=== PATIENT | male | born 1990 | race Caucasian/White ===

== ENCOUNTER 2018-07-18 16:41 | Emergency (ER) | payer SELFPAY ==
[~2018-07-18] VITALS: Ht 180.3 cm; Wt 72.6 kg
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
--- NOTE | 2018-07-18 17:20 | NUR ---
Becca AVILA, TANGELA AND DR WILSON ARE AT THE BEDSIDE EVALUATING THE PT'S LAC.
--- NOTE | 2018-07-18 17:25 | NUR ---
CIRILO GAONA LAPGiovani ARRIVED AND IS SPEAKING TO THE PT AND HIS GIRLFRIEND.
[2018-07-18] MEDS ORDERED: HYDROMORPHONE 1 MG/1 ML DISP.SYRIN ONE ×2 (17:28→18:07)
[2018-07-18] MEDS ORDERED: HYDROMORPHONE INJ 2 MG/ML DISP.SYRIN IV ONE ×2 (17:30→18:30)
[2018-07-18] MEDS ORDERED: ONDANSETRON HCL/PF 4 MG/2 ML VIAL IVP ONE (17:30)
[2018-07-18] MEDS ORDERED: TDAP [DIPH/PERTUSSIS/TET] 0.5 ML VIAL IM ONE ×2 (17:30→17:31)
[2018-07-18] MEDS ORDERED: IV NS 0.9% 1,000 ML BAG IV ONE (17:30)
[2018-07-18] MEDS ORDERED: ONDANSETRON HCL/PF 4 MG/2 ML VIAL ONE (17:31)
--- NOTE | 2018-07-18 17:40 | NUR ---
XRAY IN PROGRESS AT THE BEDSIDE.
[2018-07-18 17:52] LABS: BASOPHILS % (AUTO) 0.5 % (0.0-2.0); EOSINOPHILS % (AUTO) 0.7 % (0.0-6.0); HEMATOCRIT 44 % (39-51); LYMPHOCYTES # (AUTO) 0.9 /CMM (0.8-4.8); LYMPHOCYTES % (AUTO) 10.6 % (20.0-44.0); MEAN CORPUSCULAR HGB CONC 34 g/dl (31.0-36.0); MEAN CORPUSCULAR VOLUME 91 fL (80-96); MONOCYTES # (AUTO) 0.7 /CMM (0.1-1.30); MONOCYTES % (AUTO) 8.3 % (2.0-12.0); NEUTROPHILS # (AUTO) 6.9 /CMM (1.8-8.9); NEUTROPHILS % (AUTO) 79.9 % (43.0-81.0); PLATELET COUNT (AUTO) 240 /CMM (150-450); RED BLOOD CELL COUNT(AUTO) 4.83 MIL/uL (4.5-6.0); WHITE BLOOD COUNT (AUTO) 8.6 K/uL (4.3-11.0)
[2018-07-18 18:03] LABS: CALCIUM, SERUM 8.5 mg/dL (8.5-10.1); CREATININE 1.2 mg/dL (0.6-1.3); POTASSIUM 3.9 mmol/L (3.5-5.1)
[2018-07-18] MEDS ORDERED: LIDOCAINE 2%-EPI 1:100,000 30 ML VIAL ONE (18:59)
[2018-07-18] MEDS ORDERED: LIDOCAINE HCL/PF 1% 30 ML VIAL TP ONE (19:00)
--- NOTE | 2018-07-18 19:03 | NUR ---
B TANGELA AVILA VERBAL ORDER LIDOCAINE 2% W/EPI. IT IS AT THE BEDSIDE FOR SUTURING.
--- NOTE | 2018-07-18 19:10 | NUR ---
B MARGARITA, PAC IS AT THE BEDSIDE SUTURING THE PT.
--- NOTE | 2018-07-18 19:53 | NUR ---
PT REC'D A 4" ORTHOGLASS SPLINT AND CRUTCHES. Crutches dispensed. Pt instructed on proper use of crutches. Patient able to demonstrate correct use of crutches. Patient discharged to home in stable condition. Written and verbal after care instructions given. Patient verbalizes understanding of instruction AND RX. PT WAS INSTRUCTED NOT TO DRIVE. PT REC'D AN EXCUSE FROM WORK.
[2018-07-18 19:55] VITALS: BP 127/85
--- NOTE | 2018-07-18 19:57 | NUR ---
IV removed. Catheter intact and site benign. Pressure and 4x4 applied to site. No bleeding noted.
== END 2018-07-18 19:56 | disposition home or self-care (01) ==
LOC: ER 16:54
DX: S91.312A Laceration without foreign body, left foot, initial encounter (principal); S90.512A Abrasion, left ankle, initial encounter; Z60.2 Problems related to living alone; R94.31 Abnormal electrocardiogram [ECG] [EKG]; V29.49XA Motorcycle driver injured in collision with other motor vehicles in traffic accident, initial encounter; Y93.89 Activity, other specified; Y92.413 State road as the place of occurrence of the external cause; Y99.8 Other external cause status
CPT/HCPCS: 12001; 36415; 71045; 73590; 73610; 73620; 80048; 85025; 85730; 90471; 90715; 93005; 96374; 96375; 96376; 99284; A6403 ×2; J1170 ×2; J2405; J3490 ×2; J7030